=== PATIENT | male | born 1965 | race Caucasian/White ===

== ENCOUNTER → 2017-11-29 | Outpatient (CLI) | payer BC ==
[~2017-11-29] MED LIST: CELEXA20 MG PO; FISH OIL 1,0001 EAC7 PO; FISH OIL 1,2001 EAC4 PO; LISINOPRIL10 MG PO; VITAMIN D31000 UNIT PO
== END | disposition home or self-care (01) ==
LOC: CDC 16:07
DX: Z01.810 Encounter for preprocedural cardiovascular examination (principal); S83.232D Complex tear of medial meniscus, current injury, left knee, subsequent encounter
CPT/HCPCS: 93000